=== PATIENT | male | born 1985 | race Two or more races ===

== ENCOUNTER 2019-04-27 08:20 | Emergency (ER) | payer SELFPAY ==
[~2019-04-27] VITALS: Ht 177.8 cm; Wt 95.1 kg
--- NOTE | 2019-04-27 08:40 | NUR ---
DR SOUZA AT BEDSIDE TO [facility]
--- NOTE | 2019-04-27 08:45 | NUR ---
CONTACT WITH PT, PT SITTING UP ON GURNEY, C/O RIGHT BACK (FOR ABOUT 2 WEEKS) PAIN, BEGAN TO WRAP AROUND TO RIGHT CHEST LAST NIGHT. PT DENIES INJURY. PT TO RADIOLOGY FOR XRAY.
--- NOTE | 2019-04-27 08:50 | NUR ---
REPORT FROM SATYA HERNANDEZ. ASSUMED CARE OF PATIENT AT THIS TIME.
--- NOTE | 2019-04-27 08:53 | NUR ---
REPORT TO NONI HERNADEZ
--- NOTE | 2019-04-27 08:57 | NUR ---
PATIENT PROVIDED URINAL FOR UA. PATIENT SITTING IN [facility] SPEAKING WITH FAMILY AT BEDSIDE,
[2019-04-27] MEDS ORDERED: KETOROLAC 30 MG/1 ML IM ONE (09:00)
--- NOTE | 2019-04-27 09:06 | NUR ---
UA COLLECTED AND SENT TO LAB.
[2019-04-27 09:08] LABS: BASOPHILS # (AUTO) 0.04 x10^3/uL (0-0.1); BASOPHILS % (AUTO) 0 % (0-1); EOSINOPHILS # (AUTO) 0.13 x10^3/uL (0-0.4); EOSINOPHILS % (AUTO) 1 % (1-7); LYMPHOCYTES # (AUTO) 2.23 x10^3/uL (1-3.4); LYMPHOCYTES % (AUTO) 23 % (22-44); MD NO; MEAN CORPUSCULAR HEMOGLOBIN 31.1 pg (27.5-34.5); MEAN CORPUSCULAR HGB CONC 33.6 g/dL (33.2-36.2); MEAN CORPUSCULAR VOLUME 92.7 fL (81-97); MEAN PLATELET VOLUME 10.9 fL (7.4-10.4); MONOCYTES # (AUTO) 0.72 x10^3/uL (0.2-0.8); MONOCYTES % (AUTO) 7 % (2-9); NEUTROPHILS # (AUTO) 6.63 x10^3/uL (1.8-6.8); NEUTROPHILS % (AUTO) 68 % (42-75); PLATELET COUNT 165 x10^3/uL (130-400); RED BLOOD COUNT 5.38 x10^6/uL (4.38-5.82)
[2019-04-27 09:11] LABS: ALANINE AMINOTRANSFERASE 36 U/L (12-78); ALBUMIN 4.4 g/dL (3.4-5.0); ANION GAP 7 mmol/L (5-15); CALCIUM 9.3 mg/dL (8.5-10.1); CHLORIDE 106 mmol/L (98-107); CREATININE 1.12 mg/dL (0.7-1.3)
[2019-04-27 09:14] LABS: ALKALINE PHOSPHATASE 95 U/L (45-117); BILIRUBIN,TOTAL 0.6 mg/dL (0.2-1.0)
[2019-04-27] MEDS ORDERED: KETOROLAC 60 MG/2 ML ONE (09:36)
[2019-04-27 09:40] LABS: MICROSCOPIC NOT IND
[2019-04-27 09:44] LABS: CULTURE INDICATED? NO
--- NOTE | 2019-04-27 09:53 | NUR ---
RESULTS BACK, CHART UP FOR RECHECK.
[2019-04-27 10:28] VITALS: BP 109/74
--- NOTE | 2019-04-27 10:29 | NUR ---
Patient/Caregiver given discharge instructions and they have confirmed that they understand the instructions. Patient ambulatory with steady gait.
== END 2019-04-27 10:30 | disposition home or self-care (01) ==
LOC: ED 10:22
DX: R07.89 Other chest pain (principal)
CPT/HCPCS: 36415; 71046; 80053; 81003; 85025; 93005; 96372; 99284; J1885

== ENCOUNTER 2019-10-26 01:52 | Emergency (ER) | payer SELFPAY ==
[~2019-10-26] VITALS: Ht 177.8 cm; Wt 103.3 kg
--- NOTE | 2019-10-26 03:43 | NUR ---
pt to room from lobby
[2019-10-26] MEDS ORDERED: KETOROLAC 60 MG/2 ML ONE (04:24)
[2019-10-26] MEDS ORDERED: METHOCARBAMOL 750 MG TABLET ONE (04:24)
[2019-10-26] MEDS ORDERED: KETOROLAC 30 MG/1 ML IM ONE (04:30)
[2019-10-26] MEDS ORDERED: METHOCARBAMOL 750 MG TABLET PO ONE (04:30)
--- NOTE | 2019-10-26 04:33 | NUR ---
BREAK RN: PT. MEDICATED PER MAR. VS UPDATED.
[2019-10-26 05:15] VITALS: BP 109/71
== END 2019-10-26 05:15 | disposition home or self-care (01) ==
LOC: ED 05:04
DX: S39.012A Strain of muscle, fascia and tendon of lower back, initial encounter (principal); X50.0XXA Overexertion from strenuous movement or load, initial encounter; Y93.89 Activity, other specified; Y92.89 Other specified places as the place of occurrence of the external cause; Y99.8 Other external cause status
CPT/HCPCS: 96372; 99283; J1885